=== PATIENT | female | born 1990 | race Caucasian/White ===

== ENCOUNTER 2017-07-15 16:02 | Emergency (ER) | payer OTHER ==
[~2017-07-15] VITALS: Ht 175.3 cm; Wt 64.4 kg
[2017-07-15 16:03] VITALS: BP 123/86
== END 2017-07-15 16:54 | disposition home or self-care (01) ==
LOC: ED 16:15
DX: S80.02XA Contusion of left knee, initial encounter (principal); G89.11 Acute pain due to trauma; Z88.0 Allergy status to penicillin; W01.0XXA Fall on same level from slipping, tripping and stumbling without subsequent striking against object, initial encounter; Y93.41 Activity, dancing; Y92.89 Other specified places as the place of occurrence of the external cause; Y99.8 Other external cause status
CPT/HCPCS: 99284